=== PATIENT | female | born 1995 | race Caucasian/White ===

== ENCOUNTER 2016-12-14 00:19 | Emergency (ER) | payer OTHER ==
[2016-12-14] MEDS ORDERED: ONDANSETRON 4 MG/2 ML VIAL IVP ONE (00:25)
[2016-12-14] MEDS ORDERED: NS 1,000 ML IV ONE (00:25)
--- NOTE | 2016-12-14 00:25 | EDPHY ---
H & P Stated Complaint: ETOH AND XANAX INGESTION HPI/ROS: HPI CHIEF COMPLAINT: Alcohol and Xanax ingestion, full HISTORY OF PRESENT ILLNESS: This patient 21-year-old female denies any significant medical history she presents emergency room by private vehicle with friends for acute alcohol intoxication and Xanax ingestion. the history is limited due to the patient's alcohol intoxication however friends report that she has been drinking heavily tonight, also may have taken 3 Xanax bars. She presents emergency room highly intoxicated with alcohol. It is noted she does have a hematoma to her right eyebrow region. Unclear if she fell or when she fell. Upon arrival here she is smiling and laughing she is highly intoxicated with alcohol, smells of alcohol. Past Medical History: unknown medical history at this time Past Surgical History: Unknown surgical history at this time Social History: Endorses drinking alcohol this evening, possible Xanax bars Family History: Noncontributory ROS REVIEW OF SYSTEMS: Review of systems limited to patient's clinical state of alcohol intoxication Exam Constitutional smells of alcohol, highly intoxicated alcohol, triage nursing summary reviewed, vital signs reviewed, laughing Eyes normal conjunctivae and sclera. HENT head/neck: Hematoma over the right eyebrow, otherwise unremarkable no obvious trauma to cervical spine, moist mucus membranes, no epistaxis, neck supple/ no meningismus, no raccoon eyes. Respiratory clear to auscultation bilaterally, normal breath sounds, no respiratory distress, no wheezing. Cardiovascular rate normal, regular rhythm, no murmur, no edema, distal pulses normal. Gastrointestinal soft, non-tender, no rebound, no guarding, normal bowel sounds, no distension, no pulsatile mass. Genitourinary no CVA tenderness. Musculoskeletal no midline vertebral tenderness, full range of motion, no calf swelling, no tenderness of extremities, no meningismus, good pulses, neurovascularly intact. Skin pink, warm, & dry, no rash, skin atraumatic. Neurologic awake, intoxicated, horizontal beating nystagmus consistent with acute alcohol intoxication, moves all 4 extremities equally, motor intact, sensory intact, CN II-XII intact, normal vision, slurring of speech Psychiatric Smiling Heme/Lymph/Immune no lymphadenopathy. Differential Diagnosis: Includes but is not limited to in a particular order; acute alcohol intoxication, benzo intoxication, head trauma, closed head injury , intracranial bleed, skull fracture Medical Decision Making: this patient had an IV established receive IV fluids will check an alcohol level, drug screen, she will be placed on full monitor, she had a CT scan of her head and neck to rule out significant trauma Re-evaluation: CT scan of the head without IV contrast. The results of the study are negative for acute traumatic injury The study was read by Dr. Feliciano. I viewed the images myself on the PACS system. CT scan of the cervical spine without IV contrast The results of the study are negative for acute traumatic injury. The study was read by Dr. Feliciano. I viewed the images myself on the PACS system. [id number]: Re-examination at this time this patient is resting comfortably in no acute distress. She ambulated well she is clinically sober and ready for discharge. She no longer slurring her speech she has, cooperative answering questions appropriately. Source: Patient - Personal History LMP (Females 10-55): Unknown Current Tetanus Diphtheria and Acellular Pertussis (TDAP): Unsure - Medical/Surgical History Other PMH: UNKNOWN - Social History Smoking Status: Unknown if ever smoked Constitutional: Initial Vital Signs Heart Rate 114 H 12/14/16 00:21 Respiratory Rate 18 12/14/16 00:21 Blood Pressure 138/120 H 12/14/16 00:21 O2 Sat (%) 97 12/14/16 00:21 O2 Delivery Mode Nasal Cannula O2 (L/minute) 2 Allergies/Adverse Reactions: Unable to Assess Allergy (Unverified 12/14/16 00:20) Home Medications: Medication Instructions Recorded Unobtainable 12/14/16 Medical Decision Making - Data Points Laboratory Results: Laboratory Results 12/14/16 03:30 12/14/16 03:30 12/14/16 12/14/16 12/14/16 03:30 01:32 00:20 WBC 10.03 H 10^3/uL REJ (3.80-9.50) RBC 3.98 L 10^6/uL TNP (4.18-5.33) Hgb 12.4 L g/dL TNP (12.6-16.3) Hct 37.8 L % TNP (38.0-47.0) MCV 95.0 fL TNP (81.5-99.8) MCH 31.2 pg TNP (27.9-34.1) MCHC 32.8 g/dL TNP (32.4-36.7) RDW 12.4 % TNP (11.5-15.2) Plt Count 246 10^3/uL TNP (150-400) MPV 10.5 fL TNP (8.7-11.7) Neut % (Auto) 69.1 % TNP (39.3-74.2) Lymph % (Auto) 24.5 % TNP (15.0-45.0) [place] % (Auto) 4.9 % TNP (4.5-13.0) Eos % (Auto) 0.8 % TNP (0.6-7.6) Baso % (Auto) 0.4 % TNP (0.3-1.7) Nucleat RBC Rel Count 0.0 % TNP (0.0-0.2) Absolute Neuts (auto) 6.93 H 10^3/uL TNP (1.70-6.50) Absolute Lymphs (auto) 2.46 10^3/uL TNP (1.00-3.00) Absolute Monos (auto) 0.49 10^3/uL TNP (0.30-0.80) Absolute Eos (auto) 0.08 10^3/uL TNP (0.03-0.40) Absolute Basos (auto) 0.04 10^3/uL TNP (0.02-0.10) Absolute Nucleated RBC 0.00 10^3/uL TNP (0-0.01) Immature Gran % 0.3 % TNP (0.0-1.1) Immature Gran # 0.03 10^3/uL TNP (0.00-0.10) Sodium 152 H mEq/L 153 H mEq/L (134-144) (134-144) Potassium 3.5 mEq/L 3.7 mEq/L (3.5-5.2) (3.5-5.2) Chloride 115 H mEq/L 111 H mEq/L (97-110) (97-110) Carbon Dioxide 24 mEq/l 23 mEq/l (22-31) (22-31) Anion Gap 13 mEq/L 19 mEq/L (8-16) (8-16) BUN 12 mg/dL 14 mg/dL (7-23) (7-23) Creatinine 0.5 L mg/dL 0.5 L mg/dL (0.6-1.0) (0.6-1.0) Estimated GFR > 60 > 60 Glucose 91 mg/dL 90 mg/dL (70-100) (70-100) Calcium 7.4 L mg/dL 8.7 mg/dL (8.5-10.4) (8.5-10.4) Urine Opiates Screen NEGATIVE (NEGATIVE) Urine Barbiturates NEGATIVE (NEGATIVE) Ur Phencyclidine Scrn NEGATIVE (NEGATIVE) Ur Amphetamine Screen NEGATIVE (NEGATIVE) U Benzodiazepines Scrn NEGATIVE (NEGATIVE) Urine Cocaine Screen NEGATIVE (NEGATIVE) U Marijuana (THC) Screen NEGATIVE (NEGATIVE) Ethyl Alcohol 292 H mg/dL (0-10) Medications Given: Discontinued Medications Sodium Chloride (Ns) 1,000 mls @ 0 mls/hr IV ONCE ONE PRN Reason: As Directed Stop: 12/14/16 00:26 Last Admin: 12/14/16 01:40 Dose: 1,000 mls Ondansetron HCl (Zofran) 4 mg IVP EDNOW ONE Stop: 12/14/16 00:26 Last Admin: 12/14/16 01:46 Dose: 4 mg Departure - Departure Disposition: Home, Routine, Self-Care Clinical Impression: Alcoholic intoxication Qualifiers: Complication of substance-induced condition: uncomplicated Qualifier Code: ( F10.120) Alcohol abuse with intoxication, uncomplicated Condition: Good Instructions: Alcohol Intoxication (ED)
--- NOTE | 2016-12-14 01:23 | CT ---
CT Cervical Spine Without Contrast History: EtOH, fall. Comparison: CT head same day. Technique: Multislice helical CT through the cervical spine without contrast from the skull base to T 1. Soft tissue and bone evaluation is performed. Sagittal and coronal reconstructions are obtained an d reviewed. Dose reduction techniques were utilized. Findings: Cervical alignment is anatomic. 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 No fractur e is identified. The relationship between the skull base and C1 is normal. The C1-C2 articulation is normal. There is no significant degenerative change. The cervicothoracic junction is normal. There is no visible epidural or prevertebral hematoma. Impression: 1. No acute posttraumatic abnormality identified. If there is persistent pain or neurologic deficit, consider MRI and/or flexion and extension views if clinically indicated. 2. Mild congenital spinal canal narrowing. Findings discussed with Ha Enamorado December 14, 2016 at 118 hours.
--- NOTE | 2016-12-14 01:25 | CT ---
CT Head Without Contrast History: EtOH, fall. Comparison: None available. Technique: Axial unenhanced images were obtained from the vertex through the skull base. Dose reducti on techniques were utilized. Findings: The study is limited by motion. Corrigan-white differentiation is preserved. The ventricles an d sulci are normal. No intracranial hemorrhage is identified. No extraaxial fluid collections are i dentified. There is no mass effect or evidence of infarct. The skull and skull base are unremarkable . Mild mucous membrane thickening is present in the paranasal sinuses. The mastoid air cells are cl ear. Impression: Motion limited study with no acute intracranial findings. Findings discussed with Ha Enamorado December 14, 2016 at 118 hours.
[2016-12-14 02:08] LABS: ANION GAP 19 mEq/L (8-16); CALCIUM 8.7 mg/dL (8.5-10.4); CARBON DIOXIDE 23 mEq/l (22-31); CHLORIDE 111 mEq/L (97-110); CREATININE 0.5 mg/dL (0.6-1.0); ETHANOL SERUM 292 mg/dL (0-10); GLOMERULAR FILTRATION RATE > 60; GLUCOSE 90 mg/dL (70-100); POTASSIUM 3.7 mEq/L (3.5-5.2); SODIUM 153 mEq/L (134-144)
[2016-12-14 02:14] VITALS: RESP 16
[2016-12-14 03:47] LABS: % IMMATURE GRANULYOCYTES 0.3 % (0.0-1.1); ABSOLUTE IMMATURE GRANULOCYTES 0.03 10^3/uL (0.00-0.10); ADD DIFF? NO; ADD MORPH? NO; ADD SCAN? NO; ATYPICAL LYMPHOCYTE FLAG 90 (0-99); FRAGMENT RBC FLAG 0 (0-99); HEMATOCRIT 37.8 % (38.0-47.0); HEMOGLOBIN 12.4 g/dL (12.6-16.3); LEFT SHIFT FLG 0 (0-99); LIPEMIA HEMOLYSIS FLAG 80 (0-99); MEAN CELL HEMOGLOBIN 31.2 pg (27.9-34.1); MEAN CELL HEMOGLOBIN CONCENTR. 32.8 g/dL (32.4-36.7); MEAN PLATELET VOLUME 10.5 fL (8.7-11.7); PLATELET CLUMPS FLAG 0 (0-99); PLATELET COUNT 246 10^3/uL (150-400); RED BLOOD CELL COUNT 3.98 10^6/uL (4.18-5.33); RED CELL DISTRIBUTION WIDTH 12.4 % (11.5-15.2)
[2016-12-14 03:59] LABS: ANION GAP 13 mEq/L (8-16); CALCIUM 7.4 mg/dL (8.5-10.4); CARBON DIOXIDE 24 mEq/l (22-31); CHLORIDE 115 mEq/L (97-110); CREATININE 0.5 mg/dL (0.6-1.0); GLOMERULAR FILTRATION RATE > 60; GLUCOSE 91 mg/dL (70-100); POTASSIUM 3.5 mEq/L (3.5-5.2); SODIUM 152 mEq/L (134-144)
[2016-12-14 06:25] VITALS: BP 100/66; PULSE 97; TEMP 98.1; O2SAT 96
== END 2016-12-14 06:26 | disposition home or self-care (01) ==
DX: F10.120 Alcohol abuse with intoxication, uncomplicated (principal)
CPT/HCPCS: 80305; 96374; G0480; J2405

== ENCOUNTER 2019-01-03 06:35 | Emergency (ER) | payer OTHER ==
[2019-01-03] MEDS ORDERED: NS 1,000 ML IV ONE (06:58)
[2019-01-03] MEDS ORDERED: ONDANSETRON 4 MG/2 ML VIAL IVP ONE ×2 (06:58→08:40)
[2019-01-03] MEDS ORDERED: HYDROmorphONE/DILAUDID 2 MG/ML INJ IVP ONE ×2 (06:58→07:27)
--- NOTE | 2019-01-03 07:01 | EDPHY ---
H & P Stated Complaint: RLQ ABD PAIN, N/V SINCE 10 P Time Seen by Provider: 01/03/19 06:54 HPI/ROS: CHIEF COMPLAINT: Abdominal pain HISTORY OF PRESENT ILLNESS: Patient is a 23-year-old female who comes to the emergency department complaining of right lower quadrant abdominal pain that radiates to her right CVA. She states that it began last night around 10:00 p.m. Spontaneously. No trauma. She has vomited multiple times. No diarrhea. No fever. She denies risk of . No vaginal bleeding or discharge. She has an IUD in place. She is sexually active. No dysuria or frequency. Severity: Moderate Modifying factors: Gradually worsening REVIEW OF SYSTEMS: Constitutional: denies: chills, fever, recent illness, recent injury EENTM: denies: blurred vision, double vision, nose congestion Respiratory: denies: cough, shortness of breath Cardiac: denies: chest pain, irregular heart rate, lightheadedness, palpitations Gastrointestinal/Abdominal: See HPI Genitourinary: denies: dysuria, frequency, hematuria, pain Musculoskeletal: denies: joint pain, muscle pain Skin: denies: lesions, rash, jaundice, bruising Neurological: denies: headache, numbness, paresthesia, tingling, dizziness, weakness Hematologic/Lymphatic: denies: blood clots, easy bleeding, easy bruising Immunologic/allergic: denies: HIV/AIDS, transplant 10 systems reviewed and negative except as noted EXAM: GENERAL: Well-appearing, well-nourished and in no acute distress. HEAD: Atraumatic, normocephalic. EYES: Pupils equal round and reactive to light, extraocular movements intact, sclera anicteric, conjunctiva are normal. ENT: TMs normal, nares patent, oropharynx clear without exudates. Moist mucous membranes. NECK: Normal range of motion, supple without lymphadenopathy or JVD. LUNGS: Breath sounds clear to auscultation bilaterally and equal. No wheezes rales or rhonchi. HEART: Regular rate and rhythm without murmurs, rubs or gallops. ABDOMEN: Right lower quadrant pain and moderate tenderness, BACK: Moderate right CVA tenderness, no spinal tenderness, step-offs or deformities EXTREMITIES: Normal range of motion, no pitting or edema. No clubbing or cyanosis. NEUROLOGICAL: Cranial nerves II through XII grossly intact. Normal speech, normal gait. 5/5 strength, normal movement in all extremities, normal sensation , normal reflexes PSYCH: Normal mood, normal affect. SKIN: Warm, dry, normal turgor, no visible rashes or lesions. Source: Patient Exam Limitations: No limitations - Personal History LMP (Females 10-55): IUD In Place Current Tetanus Diphtheria and Acellular Pertussis (TDAP): Yes - Medical/Surgical History Hx Asthma: No Hx Chronic Respiratory Disease: No Hx Diabetes: No Hx Cardiac Disease: No Hx Renal Disease: No Hx Cirrhosis: No Hx Alcoholism: No Hx HIV/AIDS: No Hx Splenectomy or Spleen Trauma: No Other PMH: DENIES - Family History Significant Family History: No pertinent family hx - Social History Smoking Status: Never smoked Alcohol Use: None Constitutional: Initial Vital Signs Temperature (C) 36.9 C 01/03/19 06:48 Heart Rate 96 01/03/19 06:48 Respiratory Rate 16 01/03/19 06:48 Blood Pressure 129/83 H 01/03/19 06:48 O2 Sat (%) 96 01/03/19 06:48 O2 Delivery Mode Room Air Allergies/Adverse Reactions: No Known Allergies Allergy (Unverified 01/03/19 06:50) Home Medications: Medication Instructions Recorded Ondansetron Odt [Zofran Odt 4 mg 4 mg PO Q4 PRN #10 tab 01/03/19 (RX)] oxyCODONE/APAP 5/325 [Percocet 1 - 2 tab PO Q4H PRN #14 tab 01/03/19 5/325 (*)] Medical Decision Making - Diagnostics Imaging: Discussed imaging studies w/ supply chain business analyst Radiologist ED Course/Re-evaluation: We discussed the patient's CT and lab results. Will obtain ultrasound to rule out torsion. Patient continues to have significant pain and has required several doses of pain medication. 9:30 a.m. discussed the ultrasound results. Patient's pain currently controlled. Will have her follow up with OBGYN for further management. She understands and agrees with this plan. Differential Diagnosis: Partial list of the Differential diagnosis considered include but were not limited to; ovarian cyst, appendicitis, torsion and although unlikely based on the history and physical exam, I also considered ectopic, urinary tract infection, kidney stone. I discussed these differential diagnoses and the plan with the patient as well as the usual and expected course. The patient understands that the diagnosis is provisional and that in medicine we are not always correct and that further workup is often warranted. Usual and customary warnings were given. All of the patient's questions were answered. The patient was instructed to return to the emergency department should the symptoms at all worsen or return, otherwise to followup with the physician as we discussed. - Data Points Laboratory Results: Laboratory Results 01/03/19 06:58 01/03/19 06:58 Medications Given: Discontinued Medications Hydromorphone HCl (Dilaudid) 0.5 mg IVP EDNOW ONE Stop: 01/03/19 06:59 Last Admin: 01/03/19 07:09 Dose: 0.5 mg Hydromorphone HCl (Dilaudid) 0.5 mg IVP EDNOW ONE Stop: 01/03/19 07:28 Last Admin: 01/03/19 07:30 Dose: 0.5 mg Sodium Chloride (Ns) 1,000 mls @ 0 mls/hr IV EDNOW ONE; Wide Open PRN Reason: Protocol Stop: 01/03/19 06:59 Last Admin: 01/03/19 07:07 Dose: 1,000 mls Ketorolac Tromethamine (Toradol) 15 mg IVP EDNOW ONE Stop: 01/03/19 08:11 Last Admin: 01/03/19 08:16 Dose: 15 mg Morphine Sulfate (Morphine) 6 mg IVP EDNOW ONE Stop: 01/03/19 09:23 Last Admin: 01/03/19 09:27 Dose: 6 mg Ondansetron HCl (Zofran) 4 mg IVP EDNOW ONE Stop: 01/03/19 06:59 Last Admin: 01/03/19 07:09 Dose: 4 mg Ondansetron HCl (Zofran) 4 mg IVP EDNOW ONE Stop: 01/03/19 08:41 Last Admin: 01/03/19 08:44 Dose: 4 mg Departure - Departure Disposition: Home, Routine, Self-Care Clinical Impression: Right ovarian cyst Abdominal pain Qualifiers: Abdominal location: right lower quadrant Qualified Code(s): R10.31 - Right lower quadrant pain Condition: Fair Instructions: Ovarian Cyst (ED) Referrals: Patient,NotPresent [Unknown] - As per Instructions Mary Guerrero DO [Doctor of Osteopathy] - As per Instructions Prescriptions: Ondansetron Odt [Zofran Odt 4 mg (RX)] 4 mg PO Q4 PRN #10 tab PRN Reason: Nausea & Vomiting oxyCODONE/APAP 5/325 [Percocet 5/325 (*)] 1 - 2 tab PO Q4H PRN #14 tab PRN Reason: Pain, Severe
[2019-01-03 07:14] LABS: PLATELET COUNT 284 10^3/uL (150-400)
[2019-01-03] MEDS ORDERED: HYDROmorphONE/DILAUDID 1 MG/ML INJ ONE (07:29)
[2019-01-03] MEDS ORDERED: IOPAMIDOL (ISOVUE-300) 100 ML BTL ONE (07:44)
[2019-01-03] MEDS ORDERED: KETOROLAC 30 MG/1 ML SDV IVP ONE (08:10)
[2019-01-03 09:49] VITALS: BP 108/56
== END 2019-01-03 10:01 | disposition home or self-care (01) ==
DX: N83.291 Other ovarian cyst, right side (principal); E86.9 Volume depletion, unspecified
CPT/HCPCS: 96374; J1170; J1885; J2270; J2405; Q9967